=== PATIENT | female | born 1990 | race Caucasian/White ===

== ENCOUNTER 2024-09-08 20:51 | Emergency (ER) | payer OTHER ==
[~2024-09-08] VITALS: Ht 160 cm; Wt 65.3 kg
[~2024-09-08 20:51] MED LIST: ALBU90OI; CODACE30 PO; FLUT110OIA; Norco 5-325 Ta1 EACH PO; Percocet 5-3251 EACH PO; Veetids 500500 MG PO
[2024-09-08 21:32] VITALS: BP 140/79
[2024-09-08] MEDS ORDERED: Clotrimazole 1% Cream 15 GM Tube TOP ONE (22:30)
[2024-09-08] MEDS ORDERED: ALEVAZOL56.7 G1 TOP (22:30)
== END 2024-09-08 22:43 | disposition home or self-care (01) ==
LOC: ER 20:51
DX: B35.3 Tinea pedis (principal); F17.200 Nicotine dependence, unspecified, uncomplicated
CPT/HCPCS: 99282; A9270

== ENCOUNTER 2024-11-01 09:21 | Emergency (ER) | payer OTHER ==
[~2024-11-01] VITALS: Ht 160 cm; Wt 65.8 kg
[~2024-11-01 09:21] MED LIST changes: +ALEVAZOL56.7 G1 TOP
[2024-11-01 10:02] VITALS: BP 138/89
[2024-11-01] MEDS ORDERED: Bactrim Ds Tab1 EACH PO (10:05)
== END 2024-11-01 10:05 | disposition home or self-care (01) ==
LOC: ER 09:21
DX: L02.01 Cutaneous abscess of face (principal); F17.290 Nicotine dependence, other tobacco product, uncomplicated; Z79.899 Other long term (current) drug therapy; Z59.89 Other problems related to housing and economic circumstances
CPT/HCPCS: 99282